=== PATIENT | female | born 1975 | race Caucasian/White ===

== ENCOUNTER → 2016-09-25 | Outpatient (CLI) | payer OTHER ==
--- NOTE | 2016-09-25 13:14 | XR ---
EXAMINATION TYPE: XR knee complete LT DATE OF EXAM: 09/25/2016 1:05 PM CLINICAL HISTORY: pain TECHNIQUE: Three views of the left knee are obtained. COMPARISON: None. FINDINGS: There is no acute fracture/dislocation. The tri-compartment joint spaces appear mildly na rrowed. The overlying soft tissue appears unremarkable. IMPRESSION: There is no acute fracture or dislocation ICD 10 NO FRACTURE, INITIAL EVALUATION
== END | disposition home or self-care (01) ==
LOC: RADXRMAIN 12:46
PROVIDERS: ATTEND Physician Assistant
DX: M25.562 Pain in left knee (principal)

== ENCOUNTER → 2017-03-05 | Outpatient (CLI) | payer OTHER ==
--- NOTE | 2017-03-08 09:12 | MM ---
Reason for exam: screening (asymptomatic). Last mammogram was performed 1 year and 1 month ago. History: Family history of breast cancer in mother at age 20, breast cancer in grandmother, and breast cancer in aunt. Physical Findings: A clinical breast exam by your physician is recommended on an annual basis and results should be correlated with mammographic findings. MG Screening Mammo w CAD Bilateral CC and MLO view(s) were taken. Prior study comparison: February 04, 2016, bilateral MG screening mammo w CAD. December 12, 2009, bilateral digital screening mammogram. There are scattered fibroglandular densities. There is chronic nodularity bilaterally, axilla presumed benign lymph nodes. There is no discrete abnormality. ASSESSMENT: Benign, BI-RAD 2 RECOMMENDATION: Routine screening mammogram of both breasts in 1 year.
== END | disposition home or self-care (01) ==
LOC: RADMAMWWP 10:49
PROVIDERS: ATTEND Family Medicine
DX: Z12.31 Encounter for screening mammogram for malignant neoplasm of breast (principal)

== ENCOUNTER → 2017-03-10 | Outpatient (CLI) | payer OTHER ==
--- NOTE | 2017-03-10 07:58 | MR ---
EXAMINATION TYPE: MR lumbar spine wo con DATE OF EXAM: 03/10/2017 6:41 AM COMPARISON: NONE HISTORY: Back pain Multiplanar, MultiSpin echo imaging of the lumbar spine was performed. L1-L2: Normal disc appearance without desiccation. No herniation, protrusion or disc bulging. No ca nal stenosis is present. Foramina are patent bilaterally. L2-L3: Normal disc appearance without desiccation. No herniation, protrusion or disc bulging. No ca nal stenosis is present. Foramina are patent bilaterally. L3-L4: Normal disc appearance without desiccation. No herniation, protrusion or disc bulging. No ca nal stenosis is present. Foramina are patent bilaterally. L4-L5: Normal disc appearance without desiccation. No herniation, protrusion or disc bulging. No ca nal stenosis is present. Foramina are patent bilaterally. L5-S1: Mild disc desiccation is noted. Mild posterocentral disc bulge without herniation or protrusio n. No central stenosis. Visualized foramina are patent bilaterally. Lumbar segments are intact. No paraspinal masses are identified. Conus medullaris has a normal appe arance. IMPRESSION: 1. Mild degenerative disc disease at L5-S1 with mild posterior disc bulge identified.
== END | disposition home or self-care (01) ==
LOC: RADMRIMAIN 06:04
PROVIDERS: ATTEND Physician Assistant
DX: M51.27 Other intervertebral disc displacement, lumbosacral region (principal); M51.37 Other intervertebral disc degeneration, lumbosacral region
CPT/HCPCS: 72148

== ENCOUNTER → 2017-04-09 | Outpatient (CLI) | payer OTHER ==
--- NOTE | 2017-04-09 13:18 | XR ---
EXAMINATION TYPE: XR foot complete LT DATE OF EXAM: 04/09/2017 CLINICAL HISTORY: TECHNIQUE: Frontal, lateral, and oblique images of the left foot are obtained. COMPARISON: None FINDINGS: There is an oblique fracture of the distal diaphyseal fifth metatarsal. Mild soft tissue sw elling is present. Joint spaces are preserved. No additional fractures are identified. IMPRESSION: 1. Oblique fracture distal diaphyseal fifth metatarsal left foot. 2. Overlying soft tissue swelling. 3. Preliminary results were provided to the office.
--- NOTE | 2017-04-09 13:20 | XR ---
EXAMINATION TYPE: XR ankle complete LT DATE OF EXAM: 04/09/2017 CLINICAL HISTORY: Pain in left foot and left ankle TECHNIQUE: Frontal, lateral and oblique images of the left ankle are obtained. COMPARISON: None. FINDINGS: There is no acute fracture/dislocation evident in the left ankle. The ankle mortise appea rs within normal limits. There is soft tissue swelling over the lateral malleolus. Incidental note is made of the patient's oblique fracture distal left fifth metatarsal best visualize d on the oblique view. This is incompletely evaluated on the left foot images. IMPRESSION: 1. There is no acute fracture or dislocation in the left ankle. 2. Soft tissue swelling left lateral malleolus. 3. Please see left foot dictation same date
== END | disposition home or self-care (01) ==
LOC: RADXRMAIN 12:44
PROVIDERS: ATTEND Physician Assistant
DX: S92.352A Displaced fracture of fifth metatarsal bone, left foot, initial encounter for closed fracture (principal); M79.89 Other specified soft tissue disorders

== ENCOUNTER → 2017-10-26 | Outpatient (CLI) | payer OTHER ==
--- NOTE | 2017-10-26 15:29 | CT ---
EXAMINATION TYPE: CT brain wo con DATE OF EXAM: 10/26/2017 COMPARISON: NONE HISTORY: Worsening migraines. CT DLP: 1026.1 mGycm. Automated Exposure Control for Dose Reduction was Utilized. TECHNIQUE: CT scan of the head is performed without contrast. FINDINGS: There is no acute intracranial hemorrhage, mass effect, or midline shift identified. The ventricles and sulci are within normal limits in size. The globes are intact and the visualized sin uses are remarkable for inflammatory change in the sphenoid sinus, ethmoid air cells. IMPRESSION: No acute intracranial hemorrhage, mass effect, or midline shift is seen. Sinus disease.
--- NOTE | 2017-10-27 17:09 | ECHOF ---
Referral Reason:R51 Headache R60.0 Localized Edema MEASUREMENTS -------- HEIGHT: 165.1 cm WEIGHT: 120.2 kg BP: 118/59 IVSd: 0.9 cm (0.6 - 1.1) LVIDd: 4.1 cm (3.9 - 5.3) LVPWd: 1.0 cm (0.6 - 1.1) IVSs: 1.2 cm LVIDs: 3.0 cm LVPWs: 1.6 cm LAESV Index (A-L): 15.12 ml/m Ao Diam: 2.7 cm (2.0 - 3.7) AV Cusp: 1.8 cm (1.5 - 2.6) LA Diam: 3.3 cm (2.7 - 3.8) MV EXCURSION: 15.944 mm (> 18.000) MV EF SLOPE: 78 mm/s (70 - 150) EPSS: 0.7 cm MV E Santiago: 0.75 m/s MV DecT: 144 ms MV A Santiago: 0.66 m/s MV E/A Ratio: 1.14 RAP: 5.00 mmHg RVSP: 11.86 mmHg FINDINGS -------- Sinus rhythm. This was a technically adequate study. The left ventricular size is normal. Left ventricular wall thickness is normal. Overall left vent ricular systolic function is low-normal with, an EF between 50 - 55 %. The right ventricle is normal in size and function. The left atrium is normal in size. The right atrium is normal in size. The aortic valve is trileaflet and appears structurally normal. The mitral valve leaflets are mildly thickened. There is trace mitral regurgitation. Trace tricuspid regurgitation present. The right ventricular systolic pressure, as measured by Dopp ler, is 11.86mmHg. Pulmonic valve appears structurally normal. The aortic root size is normal. The pericardium is normal. CONCLUSIONS -------- 1. Sinus rhythm. 2. This was a technically adequate study. 3. The left ventricular size is normal. 4. Left ventricular wall thickness is normal. 5. Overall left ventricular systolic function is low-normal with, an EF between 50 - 55 %. 6. The right ventricle is normal in size and function. 7. The left atrium is normal in size. 8. The right atrium is normal in size. 9. The aortic valve is trileaflet and appears structurally normal. 10. The mitral valve leaflets are mildly thickened. 11. There is trace mitral regurgitation. 12. Trace tricuspid regurgitation present. 13. The right ventricular systolic pressure, as measured by Doppler, is 11.86mmHg. 14. Pulmonic valve appears structurally normal. 15. The aortic root size is normal. 16. The pericardium is normal. INFANTRYMAN: Fany Carrillo RDCS
== END | disposition home or self-care (01) ==
LOC: RADCTMAIN 14:38
PROVIDERS: ATTEND Physician Assistant
DX: I34.8 Other nonrheumatic mitral valve disorders (principal); R51 Headache; Z88.6 Allergy status to analgesic agent; Z91.040 Latex allergy status
CPT/HCPCS: 70450; 93306

== ENCOUNTER → 2019-03-23 | Outpatient (CLI) | payer OTHER ==
--- NOTE | 2019-03-27 08:17 | MM ---
Reason for exam: screening (asymptomatic). Last mammogram was performed 2 years and 1 month ago. History: Family history of breast cancer in mother at age 20, breast cancer in grandmother, breast cancer in aunt, and breast cancer in sister at age 49. Physical Findings: A clinical breast exam by your physician is recommended on an annual basis and results should be correlated with mammographic findings. MG Screening Mammo w CAD Bilateral CC and MLO view(s) were taken. XCCM view(s) were taken of the right breast. Prior study comparison: March 05, 2017, bilateral MG screening mammo w CAD. February 04, 2016, bilateral MG screening mammo w CAD. There are scattered fibroglandular densities. No suspicious abnormality. No significant changes when compared with prior studies. ASSESSMENT: Negative, BI-RAD 1 RECOMMENDATION: Routine screening mammogram of both breasts in 1 year.
== END | disposition home or self-care (01) ==
LOC: RADMAMWWP 10:56
PROVIDERS: ATTEND Family Medicine
DX: Z12.31 Encounter for screening mammogram for malignant neoplasm of breast (principal)
CPT/HCPCS: 77067

== ENCOUNTER 2019-09-03 13:53 | Emergency (ER) | payer OTHER ==
[2019-09-03 14:02] VITALS: RESP 18
--- NOTE | 2019-09-03 14:45 | ED ---
URI HPI - General Chief Complaint: Upper Respiratory Infection Stated Complaint: Cough Time Seen by Provider: 09/03/19 14:04 Source: patient Mode of arrival: ambulatory Limitations: no limitations - History of Present Illness Initial Comments: Patient is a 43-year-old female presenting to emergency Department with complaints of a cough, fevers, drainage, body aches for the past 3 days. Patient states she has been trying to take [id number] medications as well as ibuprofen without relief of symptoms. She is also been nauseous and vomiting a few times. She denies shortness of breath, chest pain. She did take ibuprofen earlier this morning in. She has no other complaints at this time. Upon arrival to ER, vital signs are stable, afebrile. - Related Data Home Medications Medication Instructions Recorded Confirmed DULoxetine HCL [Cymbalta] 60 mg PO DAILY 09/18/15 09/18/15 Previous Rx's Medication Instructions Recorded EPINEPHrine [Epipen 2-Gaudencio] 0.3 mg IJ ONCE PRN #1 auto.injct 09/18/15 predniSONE 20 mg PO DAILY #3 tab 09/18/15 methylPREDNISolone [Medrol Dose 4 mg PO DIRECTED #1 pack 09/03/19 Pack] Allergies Allergy/AdvReac Type Severity Reaction Status Date / Time aspirin Allergy Unknown Verified 09/03/19 14:02 bee pollen Allergy Swelling Verified 09/03/19 14:02 chocolate flavor Allergy Nausea & Verified 09/03/19 14:02 Vomiting Milk Containing Products Allergy Diarrhea Verified 09/03/19 14:02 [Dairy] red (food color) Allergy Swelling Verified 09/03/19 14:02 shellfish derived [Shellfish] Allergy Swelling Verified 09/03/19 14:02 Review of Systems ROS Statement: Those systems with pertinent positive or pertinent negative responses have been documented in the HPI. ROS Other: All systems not noted in ROS Statement are negative. Past Medical History Past Medical History: No Reported History History of Any Multi-Drug Resistant Organisms: None Reported Past Surgical History: Cholecystectomy Past Psychological History: Depression Smoking Status: Never smoker Past Alcohol Use History: None Reported Past Drug Use History: None Reported General Exam - General Exam Comments Initial Comments: GENERAL: Well-nourished, no acute distress. HEAD: Atraumatic, normocephalic. EYES: Pupils equal round and reactive to light, extraocular movements intact, sclera anicteric, conjunctiva are normal. ENT: TMs normal, nares patent, oropharynx clear without exudates. Moist mucous membranes. NECK: Normal range of motion, supple without lymphadenopathy or JVD. LUNGS: Mild wheezing scattered throughout, no rales or rhonchi. HEART: Regular rate and rhythm without murmurs, rubs or gallops. ABDOMEN: Soft, nontender, normoactive bowel sounds. No guarding, no rebound. No masses appreciated. EXTREMITIES: Normal range of motion, no pitting or edema. No clubbing or cyanosis. NEUROLOGICAL: Normal speech, normal gait. PSYCH: Normal mood, normal affect. SKIN: Warm, Dry, normal turgor, no rashes or lesions noted. Limitations: no limitations Course Vital Signs 09/03/19 09/03/19 13:58 15:45 Temperature 98.1 F 97.9 F Pulse Rate 70 65 Respiratory 18 18 Rate Blood Pressure 131/89 116/76 O2 Sat by Pulse 97 100 Oximetry Medical Decision Making - Medical Decision Making Patient is a 43-year-old female presenting with flulike symptoms for 3 days. Vital signs are stable upon arrival. Exam is unremarkable. Chest x-ray shows no acute abnormalities. Influenza is negative. I discussed these findings with the patient and that her symptoms are most likely related to bronchitis. Patient will be started on steroids. She does have an albuterol inhaler at home that she can use as needed for cough or shortness of breath. She is in agreement with this plan of care. She is stable for discharge at this time. Return parameters were discussed with the patient she verbalized understanding. - Lab Data Lab Results 09/03/19 Range/Units 14:44 Influenza Type A RNA Not Detected (Not Detectd) Influenza Type B (PCR) Not Detected (Not Detectd) Disposition Clinical Impression: Bronchitis Disposition: HOME SELF-CARE Condition: Stable Instructions (If sedation given, give patient instructions): Acute Bronchitis (ED) Additional Instructions: Please return to the Emergency Department if symptoms worsen or any other concerns. Take steroids as prescribed. Use inhaler as needed for shortness of breath or cough. Follow-up with PCP if symptoms persist. Prescriptions: methylPREDNISolone [Medrol Dose Pack] 4 mg PO DIRECTED #1 pack Is patient prescribed a controlled substance at d/c from ED?: No Referrals: Chandler Ortega Jr, DO [Primary Care Provider] - 1-2 days
--- NOTE | 2019-09-03 15:26 | XR ---
EXAMINATION TYPE: XR chest 2V DATE OF EXAM: 09/03/2019 COMPARISON: NONE HISTORY: Cough and congestion TECHNIQUE: FINDINGS: Heart and mediastinum are normal. Lungs are clear. Diaphragm is normal. Bony thorax appears normal. IMPRESSION: Normal chest.
[2019-09-03 15:47] VITALS: BP 116/76; PULSE 65; TEMP 97.9
== END 2019-09-03 15:47 | disposition home or self-care (01) ==
LOC: EC 13:53
DX: J40 Bronchitis, not specified as acute or chronic (principal); R11.2 Nausea with vomiting, unspecified; F32.9 Major depressive disorder, single episode, unspecified; Z88.6 Allergy status to analgesic agent; Z91.02 Food additives allergy status; Z91.011 Allergy to milk products; Z91.013 Allergy to seafood; Z91.030 Bee allergy status; Z79.899 Other long term (current) drug therapy; Z90.49 Acquired absence of other specified parts of digestive tract
CPT/HCPCS: 71046; 87502; 99283

== ENCOUNTER 2020-12-10 03:35 | Emergency (ER) | payer OTHER ==
[2020-12-10 03:52] VITALS: TEMP 98.7
--- NOTE | 2020-12-10 04:04 | ED ---
Chest Pain HPI - General Chief Complaint: Chest Pain Stated Complaint: Chest Pain, Neuro Symptoms Time Seen by Provider: 12/10/20 03:45 Source: patient, EMS Mode of arrival: EMS Limitations: no limitations - History of Present Illness MD Complaint: chest pain Onset/Timin -: hour(s) Onset: other (While washing dishes) Pain Location: left chest Pain Radiation: none Severity: severe Quality: aching Consistency: constant Improves With: nothing Worsens With: palpation, movement Treatments Prior to Arrival: none - Related Data Home Medications Medication Instructions Recorded Confirmed DULoxetine HCL [Cymbalta] 60 mg PO DAILY 09/18/15 09/18/15 Previous Rx's Medication Instructions Recorded EPINEPHrine [Epipen 2-Gaudencio] 0.3 mg IJ ONCE PRN #1 auto.injct 09/18/15 predniSONE [Deltasone] 20 mg PO DAILY #3 tab 09/18/15 methylPREDNISolone [Medrol Dose 4 mg PO DIRECTED #1 pack 09/03/19 Pack] HYDROcodone/APAP 5-325MG [Payette 1 tab PO Q4HR PRN 3 Days #18 tab 12/10/20 5-325] Ibuprofen 800 mg PO TID #20 tablet 12/10/20 Allergies Allergy/AdvReac Type Severity Reaction Status Date / Time aspirin Allergy Unknown Verified 12/10/20 03:52 bee pollen Allergy Swelling Verified 12/10/20 03:52 chocolate flavor Allergy Nausea & Verified 12/10/20 03:52 Vomiting Milk Containing Products Allergy Diarrhea Verified 12/10/20 03:52 [Dairy] red (food color) Allergy Swelling Verified 12/10/20 03:52 shellfish derived [Shellfish] Allergy Swelling Verified 12/10/20 03:52 Review of Systems ROS Statement: Those systems with pertinent positive or pertinent negative responses have been documented in the HPI. ROS Other: All systems not noted in ROS Statement are negative. Constitutional: Denies: fever, chills Respiratory: Denies: cough, dyspnea Cardiovascular: Reports: as per HPI, chest pain. Denies: palpitations, orthopnea, edema, syncope Gastrointestinal: Denies: abdominal pain, nausea, vomiting, diarrhea Genitourinary: Denies: dysuria, hematuria Musculoskeletal: Denies: back pain Skin: Denies: rash Neurological: Denies: headache, weakness, numbness EKG Findings - EKG Results: EKG: interpreted by ERMD, sinus rhythm, normal axis, normal QRS, normal ST/T - Blocks, [place], Hypertrophy, ST Abn: Chamber hypertrophy or enlargement: left ventricular hypertrophy or enlargement (LVE) Past Medical History Past Medical History: Myocardial Infarction ([place]) History of Any Multi-Drug Resistant Organisms: None Reported Past Surgical History: Cholecystectomy Past Psychological History: Depression Smoking Status: Never smoker Past Alcohol Use History: None Reported Past Drug Use History: None Reported General Exam Limitations: no limitations General appearance: alert, in no apparent distress Head exam: Present: atraumatic, normocephalic Eye exam: Present: normal appearance. Absent: scleral icterus, conjunctival injection ENT exam: Present: normal oropharynx Neck exam: Present: normal inspection, full ROM Respiratory exam: Present: normal lung sounds bilaterally, chest wall tenderness . Absent: respiratory distress, wheezes, rales, rhonchi, stridor, accessory muscle use, decreased breath sounds, prolonged expiratory Cardiovascular Exam: Present: regular rate, normal rhythm, normal heart sounds. Absent: systolic murmur, diastolic murmur, rubs, gallop GI/Abdominal exam: Present: soft. Absent: distended, tenderness, guarding, re bound, rigid, mass Extremities exam: Present: normal inspection, normal capillary refill. Absent: pedal edema, calf tenderness Back exam: Present: normal inspection. Absent: CVA tenderness (R), CVA tenderness (L) Neurological exam: Present: alert Skin exam: Present: warm, dry, intact, normal color. Absent: rash Course Vital Signs 12/10/20 12/10/20 12/10/20 03:48 04:40 06:06 Temperature 98.7 F Pulse Rate 89 71 70 Respiratory 18 18 16 Rate Blood Pressure 115/60 119/77 112/75 O2 Sat by Pulse 98 97 98 Oximetry 12/10/20 07:16 Temperature Pulse Rate 79 Respiratory 18 Rate Blood Pressure 118/71 O2 Sat by Pulse 98 Oximetry Disposition Clinical Impression: Chest wall pain Disposition: HOME SELF-CARE Condition: Good Instructions (If sedation given, give patient instructions): Chest Wall Pain (ED) Prescriptions: Ibuprofen 800 mg PO TID #20 tablet HYDROcodone/APAP 5-325MG [Payette 5-325] 1 tab PO Q4HR PRN 3 Days #18 tab PRN Reason: Pain Is patient prescribed a controlled substance at d/c from ED?: Yes When asked, does pt state using other controlled substances?: No If prescribed controlled substance>3 days was MAPS reviewed?: Prescribed <3 Days If opioid is for acute pain is fill amount 7 days or less?: Yes If Rx opioid, was Start Talking consent form obtained?: Yes Referrals: Chandler Ortega Jr, DO [Primary Care Provider] - 1-2 days
[2020-12-10 04:15] LABS: Basophils # (A) 0.1 k/uL (0-0.2); Basophils % (A) 0 %; Eosinophils # (A) 0.7 k/uL (0-0.7); Eosinophils % (A) 6 %; HCT 41.9 % (34.0-46.0); HGB 14.5 gm/dL (11.4-16.0); Lymphocytes # (A) 1.5 k/uL (1.0-4.8); Lymphocytes % (A) 12 %; MCH 31.7 pg (25.0-35.0); MCHC 34.6 g/dL (31.0-37.0); MCV 91.5 fL (80.0-100.0); Mean Platelet Volume 8.4; Monocytes # (A) 0.7 k/uL (0-1.0); Monocytes % (A) 5 %; Neutrophils # (A) 9.1 k/uL (1.3-7.7); Neutrophils % (A) 75 %; Platelet Count 344 k/uL (150-450); RBC 4.58 m/uL (3.80-5.40); RDW 12.8 % (11.5-15.5); WBC 12.1 k/uL (3.8-10.6)
[2020-12-10 04:21] LABS: ALT 31 U/L (4-34); AST 29 U/L (14-36); African American GFR (CKD) >90 (>60 ml/min/1.73 sqM); Albumin 3.9 g/dL (3.5-5.0); Alkaline Phosphatase 142 U/L (38-126); Anion Gap 7 mmol/L; Blood Urea Nitrogen 16 mg/dL (7-17); Calcium 9.4 mg/dL (8.4-10.2); Carbon Dioxide 28 mmol/L (22-30); Chloride 99 mmol/L (98-107); Glucose 156 mg/dL (74-99); Magnesium 1.6 mg/dL (1.6-2.3); Non-African American GFR(CKD) >90 (>60 ml/min/1.73 sqM); Potassium 3.3 mmol/L (3.5-5.1); Sodium 134 mmol/L (137-145); Total Bilirubin 0.4 mg/dL (0.2-1.3); Total Protein 7.1 g/dL (6.3-8.2)
--- NOTE | 2020-12-10 04:39 | XR ---
EXAM: XR Chest, 1 View CLINICAL HISTORY: ITS.REASON XR Reason: chest pain TECHNIQUE: Frontal view of the chest. COMPARISON: No relevant prior studies available. FINDINGS: Lungs: Bibasilar atelectasis. Pleural space: Unremarkable. Heart: Unremarkable. Mediastinum: Unremarkable. Bones/joints: Unremarkable. IMPRESSION: Normal chest x-ray.
[2020-12-10 04:40] LABS: INR 0.9 (<1.2); Partial Thromboplastin Time 23.2 sec (22.0-30.0); Prothrombin Time 9.9 sec (9.0-12.0)
[2020-12-10 04:52] LABS: D-Dimer 0.83 mg/L FEU (<0.60)
--- NOTE | 2020-12-10 05:44 | CT ---
EXAM: CT Angiography Chest With Intravenous Contrast CLINICAL HISTORY: ITS.REASON CT Reason: chest pain, possible PE TECHNIQUE: Axial computed tomographic angiography images of the chest with intravenous contrast. CTDI is 44.17 mGy and DLP is 848 mGy-cm. This CT exam was performed using one or more of the following dose reduction techniques: automated exposure control, adjustment of the mA and/or kV according to patient size, and/or use of iterative reconstruction technique. MIP reconstructed images were created and reviewed. COMPARISON: No relevant prior studies available. FINDINGS: Pulmonary arteries: No pulmonary embolus. Aorta: No thoracic aortic dissection or aneurysm. Lungs: Dependent atelectasis. No mass. Pleural space: Unremarkable. No significant effusion. No pneumothorax. Heart: Unremarkable. No cardiomegaly. No significant pericardial effusion. No evidence of RV dysfunction. Bones/joints: No acute fracture. No dislocation. Soft tissues: Unremarkable. Lymph nodes: Unremarkable. No enlarged lymph nodes. IMPRESSION: No pulmonary embolus.
[2020-12-10] MEDS ORDERED: methylPREDNISolone SOD SUCCI 125 MG/2 ML VIAL IV STA (05:50)
[2020-12-10] MEDS ORDERED: KETOROLAC 15 MG/ML 1 ML VIAL IVP STA (06:01)
[2020-12-10 07:18] VITALS: BP 118/71; PULSE 79; RESP 18
== END 2020-12-10 07:18 | disposition home or self-care (01) ==
LOC: EC 03:35
DX: R07.89 Other chest pain (principal); I25.2 Old myocardial infarction; Z90.49 Acquired absence of other specified parts of digestive tract; F32.9 Major depressive disorder, single episode, unspecified
CPT/HCPCS: 36415; 93005; 85379; 80053; 83735; 84484; 85025; 85610; 85730; 71045; 71275; 99285; 96374; 96375; J2930; J1885; Q9967

== ENCOUNTER → 2023-01-12 | Outpatient (CLI) | payer OTHER ==
--- NOTE | 2023-01-13 13:04 | MM ---
Reason for Exam: Screening (asymptomatic). Last mammogram was performed 3 year(s) and 9 month(s) ago. Patient History: Menarche at age 12. First Full-Term at age 19. Maternal grandmother had breast cancer. Maternal aunt had breast cancer. Sister had breast cancer, age 49. Mother had breast cancer, age 20. Risk Values: Kaylee 5 year model risk: 4.2%. NCI Lifetime model risk: 37.3%. Prior Study Comparison: 02/04/2016 Bilateral Screening Mammogram, [facility]. 03/05/2017 Bilateral Screening Mammogram, [facility]. 03/23/2019 Bilateral Screening Mammogram, [facility]. Tissue Density: There are scattered fibroglandular densities. Findings: Analyzed By CAD. A few tiny benign-appearing round calcifications bilaterally are redemonstrated. Benign-appearing left axillary lymph nodes are again seen. There is no suspicious new group of microcalcifications or new suspicious mass in either breast. Overall Assessment: Negative, BI-RAD 1 Management: Screening Mammogram of both breasts in 1 year. . Patient should continue monthly self-breast exams. A clinical breast exam by your physician is recommended on an annual basis. This exam should not preclude additional follow-up of suspicious palpable abnormalities. Note on Kaylee scores and lifetime risk: 1. A Kaylee score greater than 3% is considered moderate risk. If this is the case, consider specialist referral to assess eligibility for a risk reducing agent. 2. If overall lifetime risk for the development of breast cancer is 20% or higher, the patient may qualify for future screening with alternating mammogram and breast MRI. Electronically signed and approved by: Demian Nash M.D.
== END | disposition home or self-care (01) ==
LOC: RADMAMWWP 16:04
PROVIDERS: ATTEND Family Medicine
DX: Z12.31 Encounter for screening mammogram for malignant neoplasm of breast (principal); Z80.3 Family history of malignant neoplasm of breast
CPT/HCPCS: 77067

== ENCOUNTER 2023-02-11 06:54 | Day surgery (SDC) | payer OTHER ==
[2023-02-09 09:53] VITALS: BMI 44.6
[2023-02-11] MEDS ORDERED: LACTATED RINGERS 1,000 ML IV ONE (07:10)
[2023-02-11] MEDS ORDERED: LACTATED RINGERS 1,000 ML IV SCH (07:11)
--- NOTE | 2023-02-11 07:15 | P.GSHP ---
History of Present Illness H&P Date: 02/11/23 CHIEF COMPLAINT: Colon screen HISTORY OF PRESENT ILLNESS: The patient is a 47-year-old female who presents for colon screen. Lower endoscopy was offered for further evaluation and management. PAST MEDICAL HISTORY: Please see list. PAST SURGICAL HISTORY: Please see list. MEDICATIONS: Please see list. ALLERGIES: Please see list. SOCIAL HISTORY: No illicit drug use FAMILY HISTORY: No reports of Crohn disease or ulcerative colitis. REVIEW OF ORGAN SYSTEMS: CONSTITUTIONAL: No reports of fevers or chills. PHYSICAL EXAM: VITAL SIGNS: Stable GENERAL: Well-developed pleasant in no acute distress. HEENT: No scleral icterus. Extraocular movements grossly intact. Moist buccal mucosa. NECK: Supple without lymphadenopathy. CHEST: Unlabored respirations. Equal bilateral excursions. CARDIOVASCULAR: Regular rate and rhythm. Distal 2+ pulses. ABDOMEN: Soft, nontender, nondistended. MUSCULOSKELETAL: No clubbing, cyanosis, or edema. ASSESSMENT: 1. Colon screen. PLAN: 1. Recommend proceeding with a lower endoscopy Past Medical History Past Medical History: Hypertension, Myocardial Infarction ([place]) Last Myocardial Infarction Date:: at age 27 History of Any Multi-Drug Resistant Organisms: None Reported Past Surgical History: Cholecystectomy, Tubal Ligation, Uterine Ablation Past Anesthesia/Blood Transfusion Reactions: No Reported Reaction, Motion Sickness Additional Past Anesthesia/Blood Transfusion Reaction / Comment(s): no hx blood transfusion Smoking Status: Never smoker - Past Family History Mother Family Medical History: Cancer Father Additional Family Medical History / Comment(s): heart problems Sister(s) Family Medical History: Cancer Medications and Allergies Home Medications Medication Instructions Recorded Confirmed Type EPINEPHrine [Epipen 2-Gaudencio] 0.3 mg IJ ONCE PRN #1 auto.injct 09/18/15 02/09/23 Rx ALPRAZolam [Xanax] 0.25 mg PO DAILY PRN 02/09/23 02/09/23 History Albuterol Inhaler [Ventolin Hfa 1 - 2 puff INHALATION Q6H PRN 02/09/23 02/09/23 History Inhaler] Atenolol/Chlorthalidone 1 each PO DAILY 02/09/23 02/09/23 History [Atenolol/Chlorthalidone 50-25] Citalopram Hydrobromide [CeleXA] 20 mg PO QAM 02/09/23 02/09/23 History Ibuprofen 800 mg PO BID PRN 02/09/23 02/09/23 History Pregabalin 100 mg PO QAM 02/09/23 02/09/23 History Allergies Allergy/AdvReac Type Severity Reaction Status Date / Time aspirin Allergy migrain Verified 02/11/23 07:12 bee pollen Allergy Swelling Verified 02/11/23 07:12 chocolate flavor Allergy Nausea & Verified 02/11/23 07:12 Vomiting latex Allergy Rash/Hives Verified 02/11/23 07:12 Milk Containing Products Allergy Diarrhea Verified 02/11/23 07:12 [Dairy] red (food color) Allergy Swelling Verified 02/11/23 07:12 shellfish derived [Shellfish] Allergy Anaphylaxis Verified 02/11/23 07:12
[2023-02-11 07:27] VITALS: TEMP 96.8
[2023-02-11] MEDS ORDERED: PROPOFOL 10 MG/ML 20 ML VIAL IV ONE (07:32)
[2023-02-11 08:06] VITALS: RESP 16
--- NOTE | 2023-02-11 08:20 | P.PCN ---
Date of Procedure: 02/11/23 Description of Procedure: PREOPERATIVE DIAGNOSIS: Colonoscopy screening. POSTOPERATIVE DIAGNOSIS: Colonoscopy screening. Diverticulosis, scattered. OPERATION: Colonoscopy to the cecum, ileocecal valve and appendiceal orifice. SURGEON: Jackelin Palafox MD. ANESTHESIA: MAC. INDICATIONS: The patient is a 47-year-old female who presents for colonoscopy screening. Benefits and risks were described and informed consent was obtained. DESCRIPTION OF PROCEDURE: The patient had undergone Sutab prep. The patient had been brought into the operating room and laid in the left lateral decubitus position. After adequate intravenous sedation, the rectum was examined with 2% lidocaine jelly. No external hemorrhoids were encountered. The rectal tone was within normal limits. No lesions were palpated in the rectal vault. An Olympus colonoscope was advanced until the cecum, ileocecal valve and appendiceal orifice were clearly viewed. The prep is fair with presence of corn. Scattered diverticulosis with sigmoid diverticulosis was encountered. No colonic polyps were found. No evidence of focal colitis was found. Retroflexion of the scope demonstrated grade 1 internal hemorrhoids without active bleeding or inflammation. The colon was desufflated. The patient had tolerated the procedure well. Withdrawal time was over 6 minutes. FINDINGS: Aronchick preparation quality scale 2+ (1-5) Internal hemorrhoids, grade 1 No external prolapsed hemorrhoids. No arteriovenous malformations. No adenomatous polyps. No focal colitis. RECOMMENDATIONS: Lower endoscopy in 5 years, 2027 Plan - Discharge Summary Discharge Rx Participant: No New Discharge Prescriptions: Continue EPINEPHrine [Epipen 2-Gaudencio] 0.3 mg IJ ONCE PRN #1 auto.injct PRN Reason: Allergic Reaction ALPRAZolam [Xanax] 0.25 mg PO DAILY PRN PRN Reason: Pain Atenolol/Chlorthalidone [Atenolol/Chlorthalidone 50-25] 1 each PO DAILY Pregabalin 100 mg PO QAM Albuterol Inhaler [Ventolin Hfa Inhaler] 1 - 2 puff INHALATION Q6H PRN PRN Reason: allergies Ibuprofen 800 mg PO BID PRN PRN Reason: Pain Citalopram Hydrobromide [CeleXA] 20 mg PO QAM Discharge Medication List EPINEPHrine [Epipen 2-Gaudencio] 0.3 mg IJ ONCE PRN #1 auto.injct 09/18/15 [Rx] ALPRAZolam [Xanax] 0.25 mg PO DAILY PRN 02/09/23 [History] Albuterol Inhaler [Ventolin Hfa Inhaler] 1 - 2 puff INHALATION Q6H PRN 02/09/23 [History] Atenolol/Chlorthalidone [Atenolol/Chlorthalidone 50-25] 1 each PO DAILY 02/09/23 [History] Citalopram Hydrobromide [CeleXA] 20 mg PO QAM 02/09/23 [History] Ibuprofen 800 mg PO BID PRN 02/09/23 [History] Pregabalin 100 mg PO QAM 02/09/23 [History] Follow up Appointment(s)/Referral(s): Jackelin Palafox MD [STAFF PHYSICIAN] - As Needed Patient Instructions/Handouts: *Surgery [facility] - (Anesthesia) Discharge Instructions Outpatient Surgery, Diverticulosis (GEN), Colonoscopy (GEN) Activity/Diet/Wound Care/Special Instructions: Repeat colonoscopy in 5 years2027 Discharge Disposition: HOME SELF-CARE
[2023-02-11 08:25] VITALS: BP 108/70; PULSE 76
== END 2023-02-11 08:41 | disposition home or self-care (01) ==
LOC: ORWHC2ENDO 06:54
PROVIDERS: ATTEND Surgery Plastic and Reconstructive Surgery
DX: Z12.11 Encounter for screening for malignant neoplasm of colon (principal); K57.30 Diverticulosis of large intestine without perforation or abscess without bleeding; K64.0 First degree hemorrhoids; I10 Essential (primary) hypertension; I25.2 Old myocardial infarction; J45.909 Unspecified asthma, uncomplicated; F32.A Depression, unspecified; G62.9 Polyneuropathy, unspecified; E66.01 Morbid (severe) obesity due to excess calories; Z68.41 Body mass index [BMI] 40.0-44.9, adult; Z90.49 Acquired absence of other specified parts of digestive tract; Z79.51 Long term (current) use of inhaled steroids; Z79.899 Other long term (current) drug therapy; Z88.6 Allergy status to analgesic agent; Z79.1 Long term (current) use of non-steroidal anti-inflammatories (NSAID); Z91.030 Bee allergy status; Z91.040 Latex allergy status; Z91.011 Allergy to milk products; Z91.013 Allergy to seafood
CPT/HCPCS: 45378; 81025; J2704

== ENCOUNTER 2023-11-03 10:21 | Emergency (ER) | payer OTHER ==
[2023-11-03 10:36] VITALS: TEMP 98.3
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
[2023-11-03] MEDS: ORPHENADRINE 30 MG/ML 2 ML VIAL IM STA (11:23)
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
[2023-11-03] MEDS: DIPH,PERTUS(ACELL)TETVAC-LF 0.5 ML VIAL IM ONE (13:15)
[2023-11-03 13:25] VITALS: BP 122/86; PULSE 66; RESP 18
== END 2023-11-03 13:21 | disposition home or self-care (01) ==
LOC: EC 10:21
DX: S09.11XA Strain of muscle and tendon of head, initial encounter (principal); S50.312A Abrasion of left elbow, initial encounter; Z88.6 Allergy status to analgesic agent; Z91.030 Bee allergy status; Z91.018 Allergy to other foods; Z91.011 Allergy to milk products; Z91.040 Latex allergy status; Z91.013 Allergy to seafood; Z23 Encounter for immunization; V49.40XA Driver injured in collision with unspecified motor vehicles in traffic accident, initial encounter; Y92.410 Unspecified street and highway as the place of occurrence of the external cause
CPT/HCPCS: 99284 ×2; 96372 ×2; 90471 ×2; 72125; 70450; 90715; J2360

== ENCOUNTER → 2023-11-23 | Outpatient (CLI) | payer OTHER ==
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
== END | disposition home or self-care (01) ==
LOC: RADXRMAIN 11:49
PROVIDERS: ATTEND Nurse Practitioner Family
DX: M79.601 Pain in right arm (principal); M43.17 Spondylolisthesis, lumbosacral region; M48.02 Spinal stenosis, cervical region; M40.202 Unspecified kyphosis, cervical region
CPT/HCPCS: 72050; 72100

== ENCOUNTER 2024-01-12 11:37 | Emergency (ER) | payer OTHER ==
--- NOTE | 2024-01-12 12:23 | ED ---
ENT HPI - General Chief complaint: Dental/Oral Stated complaint: Tooth Issue Time Seen by Provider: 01/12/24 12:03 Source: patient, RN notes reviewed Mode of arrival: ambulatory Limitations: no limitations - History of Present Illness Initial comments: This is a 48-year-old female who presents to the emergency department for dental pain. States that over the last 2 days she has had pain near the left upper molars as well as swelling in the left upper part of her face. She is concerned about developing a dental abscess, which has happened to her in the past. Denies any fevers or chills. She is waiting to hear back from the dentist regarding an appointment. She has been having difficulty managing the pain at home. MD complaint: tooth pain - Related Data Home Medications Medication Instructions Recorded Confirmed ALPRAZolam [Xanax] 0.25 mg PO DAILY PRN 02/09/23 02/11/23 Albuterol Inhaler [Ventolin Hfa 1 - 2 puff INHALATION Q6H PRN 02/09/23 02/11/23 Inhaler] Atenolol/Chlorthalidone 1 each PO DAILY 02/09/23 02/11/23 [Atenolol/Chlorthalidone 50-25] Citalopram Hydrobromide [CeleXA] 20 mg PO QAM 02/09/23 02/11/23 Ibuprofen 800 mg PO BID PRN 02/09/23 02/09/23 Pregabalin 100 mg PO QAM 02/09/23 02/11/23 Previous Rx's Medication Instructions Recorded EPINEPHrine [Epipen 2-Gaudencio] 0.3 mg IJ ONCE PRN #1 auto.injct 09/18/15 Amoxic-Pot Clav 875-125Mg 1 tab PO Q12HR 10 Days #20 tab 01/12/24 [Augmentin 875-125] Ketorolac [Toradol] 10 mg PO Q6HR PRN #15 tab 01/12/24 Allergies Allergy/AdvReac Type Severity Reaction Status Date / Time aspirin Allergy migrain Verified 02/11/23 07:12 bee pollen Allergy Swelling Verified 02/11/23 07:12 chocolate flavor Allergy Nausea & Verified 02/11/23 07:12 Vomiting latex Allergy Rash/Hives Verified 02/11/23 07:12 Milk Containing Products Allergy Diarrhea Verified 02/11/23 07:12 (Dairy) [Dairy] red (food color) Allergy Swelling Verified 02/11/23 07:12 shellfish derived [Shellfish] Allergy Anaphylaxis Verified 02/11/23 07:12 Review of Systems ROS Statement: Those systems with pertinent positive or pertinent negative responses have been documented in the HPI. ROS Other: All systems not noted in ROS Statement are negative. Past Medical History Past Medical History: Hypertension, Myocardial Infarction ([place]) Last Myocardial Infarction Date:: at age 27 History of Any Multi-Drug Resistant Organisms: None Reported Past Surgical History: Cholecystectomy, Tubal Ligation, Uterine Ablation Past Anesthesia/Blood Transfusion Reactions: No Reported Reaction, Motion Sickness Additional Past Anesthesia/Blood Transfusion Reaction / Comment(s): no hx blood transfusion Past Psychological History: Depression Smoking Status: Never smoker - Past Family History Mother Family Medical History: Cancer Father Additional Family Medical History / Comment(s): heart problems Sister(s) Family Medical History: Cancer General Exam Limitations: no limitations General appearance: alert, in no apparent distress Head exam: Present: atraumatic, normocephalic, normal inspection ENT exam: Present: other (Multiple dental caries. Dental carry to the left upper molar with palpable developing abscess. There is no swelling to the floor of the mouth or elevation of the tongue.) Respiratory exam: Present: normal lung sounds bilaterally. Absent: respiratory distress, wheezes, rales, rhonchi, stridor Cardiovascular Exam: Present: regular rate, normal rhythm, normal heart sounds. Absent: systolic murmur, diastolic murmur, rubs, gallop, clicks Neurological exam: Present: alert, oriented X3, CN II-XII intact Psychiatric exam: Present: normal affect, normal mood Skin exam: Present: warm, dry, intact, normal color. Absent: rash Course Vital Signs 01/12/24 01/12/24 01/12/24 11:39 12:38 13:19 Temperature 98 F 97.9 F 97.8 F Pulse Rate 83 75 74 Respiratory 20 18 18 Rate Blood Pressure 112/68 132/84 124/82 O2 Sat by Pulse 97 98 98 Oximetry Medical Decision Making - Medical Decision Making This is a 48-year-old female who presents to the emergency department for dental pain. Was pt. sent in by a medical professional or institution? @ -No Did you speak to anyone other than the patient for history? @ -No Did you review nursing and triage notes? @ -Yes, and I agree, it is accurate with regards to the patient's symptoms. Were old charts reviewed? @ -No Differential Diagnosis? @ -Differential Dental Pain: Dental abscess, chipped tooth, dental carries, toni's angina, trigeminal neuralgia, this is not meant to be an all-inclusive list. EKG interpreted by me (3pts min.)? @ -Not obtained X-rays interpreted by me (1pt min.)? @ -Not obtained CT interpreted by me (1pt min.)? @ -Not obtained U/S interpreted by me (1pt. min.)? @ -Not obtained What testing was considered but not performed? (CT, X-rays, U/S, labs)? Why? @ -None What meds were considered but not given? Why? @ -None Did you discuss the management of the patient with other professionals? @ -No Did you reconcile home meds? @ -No Was smoking cessation discussed for >3mins.? @ -No Was critical care preformed (if so, how long)? @ -No Were there social determinants of health that impacted care today? How? (Homelessness, low income, unemployed, alcoholism, drug addiction, transportation, low edu. Level, literacy, decrease access to med. care, assisted, rehab)? @ -No Was there de-escalation of care discussed even if they declined? (Discuss DNR or withdrawal of care, Hospice)? @ -No What co-morbidities impacted this encounter? (DM, HTN, Smoking, COPD, CAD, Cancer, CVA, Hep., AIDS, mental health diagnosis, sleep apnea, morbid obesity)? @ -None Was patient admitted / discharged? @ -Discharged. Physical examination suggestive of a dental abscess. She had no swelling to the floor of the mouth or elevation of the tongue to suggest progression to Toni's angina. Prescription for Augmentin and Toradol provided with dosing instructions reviewed. Advised continuing to try to get an appointment with her dentist for definitive management. Patient discharged home in stable condition. Undiagnosed new problem with uncertain prognosis? @ -None Drug Therapy requiring intensive monitoring for toxicity (Heparin, Nitro, Insulin, Cardizem)? @ -None Were any procedures done? @ -None Diagnosis/symptom? @ -Dental abscess Acute, or Chronic, or Acute on Chronic? @ -Acute Uncomplicated (without systemic symptoms) or Complicated (systemic symptoms)? @ -Uncomplicated Side effects of treatment? @ -None Exacerbation, Progression, or Severe Exacerbation] @ -Not applicable Poses a threat to life or bodily function? @ -No Return precautions reviewed in depth, the patient is instructed to return to the emergency department with any new, worsening, or concerning symptoms. Patient verbalized understanding. This case was discussed in detail with the attending ED physician, Dr. Bateman. Presentation, findings, and treatment plan discussed in detail as well. Disposition Clinical Impression: Dental abscess Disposition: HOME SELF-CARE Instructions (If sedation given, give patient instructions): Dental Abscess (ED) Additional Instructions: Return to the emergency department with any new, worsening, or concerning symptoms. Take the antibiotic as prescribed for 10 days. Take the Toradol with Tylenol as needed for pain relief. If you choose to take the Toradol, do not take any other anti-inflammatories such as ibuprofen, take one or the other. Follow-up with your dentist. Prescriptions: Amoxic-Pot Clav 875-125Mg [Augmentin 875-125] 1 tab PO Q12HR 10 Days #20 tab Ketorolac [Toradol] 10 mg PO Q6HR PRN #15 tab PRN Reason: Pain Is patient prescribed a controlled substance at d/c from ED?: No Referrals: Chandler Ortega Jr, DO [Primary Care Provider] - 1-2 days Time of Disposition: 12:22
[2024-01-12] MEDS: KETOROLAC 15 MG/ML 1 ML VIAL IM STA (12:39)
[2024-01-12] MEDS: MORPHINE SULFATE 4 MG/ML SYRINGE IM STA (12:39)
[2024-01-12] MEDS: DEXAMETHASONE SOD PHOSPHATE 10 MG/ML 1 ML VIAL IM STA (12:40)
[2024-01-12] MEDS: ACET/COD 300 MG/30 MG STARTER PACK 6 TAB BTL PO STA (12:40)
[2024-01-12 13:33] VITALS: BP 124/82; PULSE 74; RESP 18; TEMP 97.8
== END 2024-01-12 13:20 | disposition home or self-care (01) ==
LOC: EC 11:37
DX: K04.7 Periapical abscess without sinus (principal); Z88.6 Allergy status to analgesic agent; Z91.013 Allergy to seafood; Z91.011 Allergy to milk products; Z91.018 Allergy to other foods; Z91.040 Latex allergy status
CPT/HCPCS: 99283; 96372 ×3; J2270; J1100; J1885

== ENCOUNTER → 2024-10-14 | Outpatient (CLI) | payer OTHER ==
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
== END | disposition home or self-care (01) ==
LOC: RADMRIMAIN 12:30
PROVIDERS: ATTEND Family Medicine
DX: M50.323 Other cervical disc degeneration at C6-C7 level (principal); M47.812 Spondylosis without myelopathy or radiculopathy, cervical region; M99.71 Connective tissue and disc stenosis of intervertebral foramina of cervical region
CPT/HCPCS: 72141